=== PATIENT | male | born 1980 | race Caucasian/White ===

== ENCOUNTER 2017-03-23 18:57 | Emergency (ER) | payer BC ==
[2017-03-23 19:29] VITALS: BP 136/98
--- NOTE | 2017-03-23 19:52 | UC ---
Back Pain HPI - HPI Summary HPI Summary: The patient comes in today for: 1. Lower left and middle back pain: Onset: 5-6 hours Palliative/provocative: Movement makes it worse. Laying down on his back makes it better. Quality: Throbbing, and stabbing with movement. Region: Lower back, and left. It does not radiate down the legs. Severity: Sittin to 7/10 Time: Constant. Associated symptoms: Event: While he was carrying a 47-pound box from the [employer] lot to the [employer] store in [facility], he felt a sudden pain in the lower back. He had to put the box down. "Not very long after" he picked up the box and then picked it up and walked to the [employer] store. After he put the box down in the [employer] store, he "seized up." After a while, he was able to walk again, but only short steps. When he is laying down flat on his back, he feels better. Getting up makes it worse. Bowel/bladder incontinence: None. Fevers/infections: None. Cancers/unexpected weight loss: None. Previous back disease: Had "sciatica" pain a few months ago. Treatment: Tylenol 1000 mg taken 2 PM. There will be times that he will find the pain suddenly grabbing him. 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 Endocrine History Of: Denies: Diabetes, Thyroid Disease, Hyperthyroidism, Hypothyroidism, Dyslipidemia Cardiovascular History Of: Reports: Hypertension Denies: Cardiac Disorders, Pacemaker/ICD, Myocardial Infarction, Congestive Heart Failure, Atrial Fibrillation, Deep Vein Thrombosis, Bleeding Disorders Respiratory History Of: Reports: Asthma Denies: COPD, Bronchitis, Pneumonia, Pulmonary Embolism GI/ History Of: Denies: Gastroesophageal Reflux, Ulcer, Gastrointestinal Bleed, Gall Bladder Disease, Kidney Stones, Diverticulitis, Renal Disease, Urosepsis Neurological History Of: Denies: TIA, CVA, Dementia, Seizures, Migraine Psychological History Of: Reports: Anxiety - On imipramine., Depression Denies: Bipolar Disorder, Schizophrenia, Post Traumatic Stress Disorder Cancer History Of: Denies: Lung Cancer, Colorectal Cancer, Breast Cancer, Prostate Cancer, Cervical Cancer Other History Of: Negative For: HIV, Hepatitis B, Hepatitis C, Anticoagulant Therapy - Surgical History Surgical History: Yes Surgery Procedure, Year, and Place: appe. esohageal sphincter - has had dilitation a couple times - Family History Known Family History: Positive: Cardiac Disease, Hypertension - Social History Occupation: Employed Full-time Alcohol Use: None Substance Use Type: None Smoking Status (MU): Never Smoked Tobacco Review of Systems Constitutional: Negative Skin: Negative Eyes: Negative ENT: Negative Respiratory: Negative Cardiovascular: Negative Gastrointestinal: Negative Genitourinary: Negative Motor: Negative Musculoskeletal: Arthralgia All Other Systems Reviewed And Are Negative: Yes Physical Exam Triage Information Reviewed: Yes Appearance: Well-Appearing, No Pain Distress - while sitting., Well-Nourished Vital Signs: Initial Vital Signs Temp 98.4 F 03/23/17 19:23 Pulse 109 03/23/17 19:23 Resp 18 03/23/17 19:23 BP 136/98 03/23/17 19:23 Pulse Ox 100 03/23/17 19:23 Vital Signs Reviewed: Yes Eyes: Positive: Conjunctiva Clear. Negative: Discharge ENT: Positive: Hearing grossly normal. Negative: Pharyngeal erythema, Nasal congestion, Nasal drainage, TM bulging, TM dull, TM red, Tonsillar swelling, Tonsillar exudate Dental: Negative: Gross Decay/Caries @, Dental Fracture @ Neck: Positive: Supple, Nontender, No Lymphadenopathy. Negative: Nuchal Rigidity Respiratory: Positive: Chest non-tender, Lungs clear, No respiratory distress, No accessory muscle use. Negative: Crackles, Wheezing Cardiovascular: Positive: RRR, No Murmur Abdomen Description: Positive: Nontender, No Organomegaly, Soft. Negative: Distended, Guarding Musculoskeletal: Positive: Strength Intact, No Edema, ROM Limited @, Other: - Back: Spine--no kyphoscoliosis. There is slight tenderness to palpation of the left lumbar paraspinous musculature. There is no CVA tenderness. Range of motion was limited to the left and with forward flexion. DTR 2+/2 x 2 for the Achilles and patellar. There is no SLR. He has psychomotor slowing and guarding.. Negative: ROM Intact Neurological: Positive: Alert, Muscle Tone Normal Psychological: Positive: Age Appropriate Behavior, Consolable Skin: Negative: rashes, breakdown Back Pain Course/Dx - Course Course Of Treatment: Patient was told that it appears that he has a muscular strain of this lower back. Treatment options were discussed. Physical therapy treatment was explained. - Differential Dx/Diagnosis Differential Diagnosis/HQI/PQRI: Herniated Disc, Strain Provider Diagnoses: Lower back strain. Discharge - Discharge Plan Condition: Stable Disposition: HOME Patient Education Materials: Low Back Strain (ED) Referrals: No Primary Care Phys,NOPCP [Primary Care Provider] - 1 Week (Please see your primary care provider in several days to a week to see how well you are doing. If you don't have a primary care provider, please contact the physicians referral phone line to help you get one. If you can't get in timely, you can always come back to see us.) [facility]IAN REFERRAL [Outside]
== END 2017-03-23 20:24 | disposition home or self-care (01) ==
LOC: UCEAST 18:57
DX: S39.012A Strain of muscle, fascia and tendon of lower back, initial encounter (principal); X50.0XXA Overexertion from strenuous movement or load, initial encounter; Y93.89 Activity, other specified; Y92.481 Parking lot as the place of occurrence of the external cause; I10 Essential (primary) hypertension; J45.909 Unspecified asthma, uncomplicated; F41.9 Anxiety disorder, unspecified; F32.9 Major depressive disorder, single episode, unspecified
CPT/HCPCS: 99212; G0463

== ENCOUNTER 2017-08-08 15:18 | Emergency (ER) | payer BC ==
[2017-08-08 15:44] VITALS: BP 127/77
--- NOTE | 2017-08-08 16:31 | UC ---
Throat Pain/Nasal Christian HPI - HPI Summary HPI Summary: SEVERAL DAYS OF CONGESTION FACIAL PRESSURE, COUGH. CHEST CONGESTION. - History of Current Complaint Chief Complaint: UCGeneralIllness Stated Complaint: SINUS PAIN,CHEST CONGESTION Time Seen by Provider: 08/08/17 15:40 Hx Obtained From: Patient Onset/Duration: Gradual Onset, Lasting Days, Still Present Severity: Moderate Cough: Nonproductive Associated Signs & Symptoms: Positive: Hoarseness, Sinus Discomfort, Nasal Discharge - Epiglottits Risk Factors Epiglottis Risk Factors: Negative - Allergies/Home Medications Allergies/Adverse Reactions: Allergies Allergy/AdvReac Type Severity Reaction Status Date / Time Shellfish Allergy Allergy Intermediate Swelling Verified 08/08/17 15:39 Of Face,Lips,& Throat Veal Allergy Unknown Uncoded 08/08/17 15:39 Reaction Details Home Medications: Home Medications Aleve 1 tab PO SEE INSTRUCTIONS PRN 08/08/17 [History Confirmed 08/08/17] PMH/Surg Hx/FS Hx/Imm Hx Previously Healthy: Yes Other History Of: Negative For: HIV, Hepatitis B, Hepatitis C, Anticoagulant Therapy - Surgical History Surgical History: Yes Surgery Procedure, Year, and Place: appendectomy. esohageal sphincter - has had dilitation a couple times - Family History Known Family History: Positive: None, Cardiac Disease, Hypertension, Other - FATHER ALLERGIES - Social History Occupation: Employed Full-time Lives: With Family Alcohol Use: Rare Substance Use Type: None Smoking Status (MU): Never Smoked Tobacco Review of Systems Constitutional: Negative Skin: Negative Eyes: Negative ENT: Ear Ache, Nasal Discharge, Sinus Congestion, Sinus Pain/Tenderness Respiratory: Cough Cardiovascular: Negative Gastrointestinal: Negative Genitourinary: Negative Motor: Negative Neurovascular: Negative Musculoskeletal: Negative Neurological: Negative Psychological: Negative Is Patient Immunocompromised?: No All Other Systems Reviewed And Are Negative: Yes Physical Exam Triage Information Reviewed: Yes Appearance: No Pain Distress, Well-Nourished, Ill-Appearing Vital Signs: Initial Vital Signs Temp 98.4 F 08/08/17 15:36 Pulse 98 08/08/17 15:36 Resp 16 08/08/17 15:36 BP 127/77 08/08/17 15:36 Pulse Ox 100 08/08/17 15:36 Vital Signs Reviewed: Yes Eye Exam: Normal ENT: Positive: Hearing grossly normal, Pharynx normal, Nasal congestion, TM bulging, TM dull Dental Exam: Normal Neck exam: Normal Neck: Positive: Supple, Nontender, No Lymphadenopathy Respiratory Exam: Other - COUGH Respiratory: Positive: Chest non-tender, Lungs clear, Normal breath sounds, No respiratory distress, No accessory muscle use Cardiovascular Exam: Normal Cardiovascular: Positive: RRR, No Murmur Abdominal Exam: Normal Abdomen Description: Positive: Nontender, No Organomegaly Musculoskeletal Exam: Normal Musculoskeletal: Positive: Strength Intact Neurological Exam: Normal Psychological Exam: Normal Skin Exam: Normal Throat Pain/Nasal Course/Dx - Differential Dx/Diagnosis Differential Diagnosis/HQI/PQRI: Pharyngitis, Sinusitis, URI Provider Diagnoses: SINUSITIS; UPPER RESPIRATORY INFECTION Discharge - Discharge Plan Condition: Stable Disposition: HOME Prescriptions: Amoxicillin/Clavulanate TAB* [Augmentin TAB 875*] 875 mg PO BID #20 tab Benzonatate CAP* [Tessalon 100 MG CAP*] 100 mg PO TID PRN #15 cap PRN Reason: Cough Fluticasone NASAL SPRAY 50MCG* [Flonase NASAL SPRAY 50MCG*] 2 spray BOTH NARES DAILY #1 btl Patient Education Materials: Sinusitis (ED), Upper Respiratory Infection (ED) Forms: *Work Release Referrals: [facility] PHYSICIAN REFERRAL [Outside] No Primary Care Phys,NOPCP [Primary Care Provider] -
== END 2017-08-08 16:25 | disposition home or self-care (01) ==
LOC: UCEAST 15:18
DX: J32.9 Chronic sinusitis, unspecified (principal); J06.9 Acute upper respiratory infection, unspecified
CPT/HCPCS: 99212; G0463